=== PATIENT | male | born 1995 | race Caucasian/White ===

== ENCOUNTER 2019-01-03 03:53 | Emergency (ER) | payer OTHER ==
[~2019-01-03] VITALS: Ht 177.8 cm; Wt 75.0 kg
[2019-01-03 03:55] VITALS: BP 134/79
== END 2019-01-03 04:58 | disposition home or self-care (01) ==
LOC: ER 03:55
DX: G47.00 Insomnia, unspecified (principal); F12.90 Cannabis use, unspecified, uncomplicated; F17.210 Nicotine dependence, cigarettes, uncomplicated; Z71.6 Tobacco abuse counseling
CPT/HCPCS: 99281